=== PATIENT | female | born 1970 | race Caucasian/White ===

== ENCOUNTER 2020-12-13 16:30 | Outpatient (CLI) | payer BC | END 2020-12-13 16:31 | disposition home or self-care (01) | LOC: BURRAD 16:30 | PROVIDERS: ATTEND Physician Assistant | DX: R50.9 Fever, unspecified (principal) | CPT/HCPCS: 71046 ==

== ENCOUNTER 2021-07-05 09:53 | Outpatient (CLI) | payer BC ==
[2021-07-05 10:19] LABS: #Eosinphils 0.2 thou/uL (0.0-0.7); #Lymphocytes 1.7 thou/uL (1.20-3.40); #Monocytes 0.4 thou/uL (0.11-0.59); #Neutrophils 5.7 thou/uL (1.40-6.50); %Basophils 0.5 % (0.0-1.0); %Eosinophils 2.1 % (0.0-10.0); %Lymphocytes 21.1 % (21.0-51.0); %Neutrophils 71.3 % (42.0-75.0); Hemoglobin 12.3 g/dL (12.0-16.0); Mean Corpuscular HGB CONC 33.8 g/dL (32.0-36.0); Mean Corpuscular Hemoglobin 29.4 pg (27.0-31.0); Mean Corpuscular Volume 87.1 fL (78.0-98.0); Mean Platelet Volume 7.3 fL (7.4-10.4); Platelet Count 296 thou/uL (130-400); RBC Distribution Width 13.4 % (11.5-14.5); Red Blood Cell (RBC) Count 4.19 mill/uL (4.20-5.40)
[2021-07-05 11:29] LABS: ALT (SGPT) 16 U/L (8-55); AST (SGOT) 14 U/L (5-34); Albumin 4.2 g/dL (3.5-5.0); Alkaline Phosphatase 97 U/L (40-110); Anion Gap 14 mmol/L (10-20); BUN (Urea Nitrogen) 14 mg/dL (7.0-18.7); Bilirubin, Total 0.4 mg/dL (0.2-1.2); Calc. Creatinine Clearance 0 mL/min (70-130); Calcium 9.2 mg/dL (7.8-10.44); Carbon Dioxide 26 mmol/L (22-29); Chloride 105 mmol/L (98-107); Cholesterol 161 mg/dl (< 200 Desired); Globulin 2.7 g/dL (2.4-3.5); Glucose 109 mg/dL (70-105); HDL Cholesterol 40 mg/dL (>60 Neg Risk); LDL Cholesterol, Calculated 99 mg/dL; Potassium 4.3 mmol/L (3.5-5.1); Protein, Total 6.9 g/dL (6.0-8.3); Sodium 141 mmol/L (136-145); Triglycerides 111 mg/dL (Less than 150)
== END 2021-07-05 09:54 | disposition home or self-care (01) ==
LOC: BURRAD 09:53
PROVIDERS: ATTEND Physician Assistant
DX: M54.42 Lumbago with sciatica, left side (principal); M54.2 Cervicalgia; E03.9 Hypothyroidism, unspecified; M79.89 Other specified soft tissue disorders; I10 Essential (primary) hypertension; M79.18 Myalgia, other site; M41.9 Scoliosis, unspecified; R53.82 Chronic fatigue, unspecified; M25.78 Osteophyte, vertebrae
CPT/HCPCS: 36415; 72040; 72070; 72100; 80053; 80061; 84443; 85025